=== PATIENT | female | born 1955 | race Caucasian/White ===

== ENCOUNTER 2019-10-09 15:44 | Emergency (ER) | payer OTHER ==
[~2019-10-09] VITALS: Ht 165.1 cm; Wt 100.0 kg
[2019-10-09 16:05] VITALS: BP 175/69
--- NOTE | 2019-10-09 16:14 | PHYS DOC ---
Adult General Chief Complaint Chief Complaint: FINGER INJURY HPI HPI Patient is a 64-year-old female presents to the ER with left little finger injury. She states that she caught her finger on a fence. There is a 4 cm V-shaped laceration to the anteromedial aspect. Patient is unsure of her t etanus immunization but she is calling her doctor currently. No numbness or tingling distally. Review of Systems Review of Systems All other systems were reviewed and found to be within normal limits, except as documented in this note. Current Medications Current Medications Current Medications Medications (Trade) Dose Ordered Sig/Antoinette Start Time Stop Time Status Last Admin Dose Admin Lidocaine HCl 20 ml 1X ONCE 10/09/19 16:15 10/09/19 16:16 UNV Physical Exam Physical Exam Constitutional: Well developed, well nourished, no acute distress, non-toxic appearance. [] HENT: Normocephalic, atraumatic, bilateral external ears normal, oropharynx moist, no oral exudates, nose normal. [] Eyes: PERRLA, EOMI, conjunctiva normal, no discharge. [] Neck: Normal range of motion, no tenderness, supple, no stridor. [] Cardiovascular:Heart rate regular rhythm, no murmur [] Lungs & Thorax: Bilateral breath sounds clear to auscultation [] Abdomen: Bowel sounds normal, soft, no tenderness, no masses, no pulsatile masses. [] Skin: 4 cm laceration in a V-shaped pattern on the anteromedial aspect of the left little finger. Back: No tenderness, no CVA tenderness. [] Extremities: No tenderness, no cyanosis, no clubbing, ROM intact, no edema. [] Neurologic: Alert and oriented X 3, normal motor function, normal sensory function, no focal deficits noted. [] Psychologic: Affect normal, judgement normal, mood normal. [] EKG EKG [] Radiology/Procedures Radiology/Procedures 4 cm left little finger laceration was repaired by myself. Laceration was anesthetized initially with a digital block with 1% lidocaine without epinephrine using 3 cc without success so local anesthesia was applied using a total of 1.5 cc of 1% lidocaine without epinephrine. The area was cleaned by nursing staff. Closure was performed with four-point 0 Ethilon using 8 simple interrupted sutures. Dressing was applied by nursing staff. Patient tolerated well. [] Course & Med Decision Making Course & Med Decision Making Pertinent Labs and Imaging studies reviewed. (See chart for details) Patient seen for laceration repair. Laceration was cleaned and repaired as above. Tetanus updated. Dragon Disclaimer Dragon Disclaimer This electronic medical record was generated, in whole or in part, using a voice recognition dictation system. Departure Departure: Impression: Primary Impression: Laceration of left little finger Disposition: 01 HOME, SELF-CARE Referrals: ETHEL LUNA MD (PCP) Please follow-up and 7 to 10 days for suture removal. Additional Instructions: Please keep dressing clean dry and intact. VAMSHI SALAZAR DO Oct 09, 2019 16:14
[2019-10-09] MEDS ORDERED: LIDOCAINE 1% Multi-Dose 20 ML VIAL. IJ ONE (16:15)
[2019-10-09] MEDS ORDERED: DIPH,PERTUSS(ACELL),TET VAC/PF 0.5 ML SYRINGE. VAX IM ONE (17:15)
== END 2019-10-09 17:29 | disposition home or self-care (01) ==
LOC: ER 15:44
DX: S61.217A Laceration without foreign body of left little finger without damage to nail, initial encounter (principal); W26.8XXA Contact with other sharp object(s), not elsewhere classified, initial encounter; Y93.89 Activity, other specified; Y92.89 Other specified places as the place of occurrence of the external cause; Y99.8 Other external cause status
CPT/HCPCS: 12002; 90471; 90715; 99283-25